=== PATIENT | female | born 1965 | race Caucasian/White ===

== ENCOUNTER 2024-12-20 11:44 | Observation (INO) | payer OTHER ==
[~2024-12-20] VITALS: Ht 157.5 cm; Wt 70.3 kg
[2024-12-20 12:07] VITALS: PULSE 93; RESP 18; TEMP 98.8
[2024-12-20 12:59] LABS: BASOPHILS % 0.4 % (0.0-1.0); EOSINOPHILS % 1.2 % (0.0-6.0); LYMPHOCYTES % 13.7 % (18.0-39.1); MONOCYTES % 6.9 % (4.4-11.3); NEUTROPHILS % 77.4 % (38.7-80.0); RED CELL DISTRIBUTION WIDTH 13.0 % (11.7-14.4)
[2024-12-20 13:03] LABS: LEUKOCYTE ESTERASE ,URINE TRACE (NEGATIVE); PROTEIN,URINE DIPSTICK NEGATIVE (NEGATIVE); URINE UROBILINOGEN 0.2 mg/dL (0.2 - 1)
[2024-12-20] MEDS: SODIUM CHLORIDE 0.9% 1000ML 1,000 ML IV ONE (13:04)
[2024-12-20] MEDS: ONDANSETRON HCL INJ 2MG/ML 2ML 2 MG/ML VIAL IV STA (13:04)
[2024-12-20] MEDS: Morphine 2mg Syringe 2 MG/ML SYR IV ONE (13:05)
[2024-12-20 13:11] LABS: EPITHELIAL CELLS,URINE FEW /LPF
[2024-12-20 13:21] LABS: EST GLOMERULAR FILTRATION RATE 99.0 ML/MIN (>=60)
[2024-12-20] MEDS ORDERED: IOPAMIDOL 370 MG/ML 100 ML INFUS..BTL INJ ONE (13:35)
[2024-12-20] MEDS ORDERED: KETOROLAC TROMETHAMINE 30 MG/ML VIAL IV PRN (16:30)
[2024-12-20] MEDS ORDERED: ONDANSETRON HCL INJ 2MG/ML 2ML 2 MG/ML VIAL IV PRN (16:30)
[2024-12-20] MEDS: SODIUM CHLORIDE 0.9% 1000ML 1,000 ML IV SCH (17:35)
[2024-12-20] MEDS: KETOROLAC TROMETHAMINE 30 MG/ML VIAL IV STA (17:35)
[2024-12-20 18:28] VITALS: BP 115/67; PULSE 94; RESP 17; TEMP 98.4; O2SAT 98
[2024-12-20 20:00] VITALS: BP 108/67; PULSE 85; RESP 18; TEMP 98.4; O2SAT 98
[2024-12-20] MEDS ORDERED: MELATONIN 5 MG TABLET PO PRN (20:15)
[2024-12-20] MEDS ORDERED: ACETAMINOPHEN 325 MG TAB PO PRN (20:15)
[2024-12-20] MEDS ORDERED: SIMETHICONE 80 MG CHEW PO PRN (20:15)
[2024-12-20] MEDS ORDERED: ALBUTEROL/IPRATROPIUM 3 ML NEB NEB PRN (20:15)
[2024-12-20] MEDS ORDERED: POTASSIUM CHLORIDE 20 MEQ TAB CR PO PRN (20:15)
[2024-12-20] MEDS ORDERED: HYDROCODONE/APAP 5MG-325MG TAB PO PRN (20:15)
[2024-12-20] MEDS ORDERED: HYDRALAZINE HCL 20 MG/ML VIAL IV PRN (20:15)
[2024-12-20] MEDS ORDERED: BENZONATATE 100 MG CAP PO PRN (20:15)
[2024-12-20] MEDS ORDERED: DEXTROSE 50% SYRINGE 50 ML IV PRN (20:15)
[2024-12-20] MEDS ORDERED: DIPHENHYDRAMINE HCL 25 MG CAP PO PRN (20:15)
[2024-12-20] MEDS ORDERED: DOCUSATE SODIUM 100 MG CAP PO PRN (20:15)
[2024-12-20] MEDS ORDERED: SYNTHROID88 MCG PO (20:46)
[2024-12-20 21:00] VITALS: BP 108/67; PULSE 85; RESP 18; TEMP 98.4; O2SAT 98
[2024-12-21] VITALS (8 sets, daily range): BP systolic 102–118; BP diastolic 60–71; PULSE 72–85; RESP 16–18; TEMP 97.5–98.8; O2SAT 97–100
[2024-12-21 06:10] LABS: BASOPHILS % 0.6 % (0.0-1.0); EOSINOPHILS % 3.6 % (0.0-6.0); LYMPHOCYTES % 23.6 % (18.0-39.1); MONOCYTES % 5.5 % (4.4-11.3); NEUTROPHILS % 66.4 % (38.7-80.0); RED CELL DISTRIBUTION WIDTH 13.0 % (11.7-14.4)
[2024-12-21 06:43] LABS: EST GLOMERULAR FILTRATION RATE 97.0 ML/MIN (>=60)
[2024-12-21] MEDS: PANTOPRAZOLE SOD 40 MG TABEC PO SCH (09:24)
[2024-12-21] MEDS: ENOXAPARIN SOD INJ 40 MG/0.4 ML SYR SC SCH (16:45)
[2024-12-22] VITALS: BP 121/69; PULSE 74; RESP 18; TEMP 97.6; O2SAT 100
[2024-12-22 04:00] VITALS: BP 120/61; PULSE 61; RESP 18; TEMP 98; O2SAT 99
[2024-12-22 06:16] LABS: BASOPHILS % 0.9 % (0.0-1.0); EOSINOPHILS % 6.6 % (0.0-6.0); LYMPHOCYTES % 35.5 % (18.0-39.1); MONOCYTES % 5.2 % (4.4-11.3); NEUTROPHILS % 51.6 % (38.7-80.0); RED CELL DISTRIBUTION WIDTH 12.8 % (11.7-14.4)
[2024-12-22 06:46] LABS: EST GLOMERULAR FILTRATION RATE 101 ML/MIN (>=60)
[2024-12-22 07:29] LABS: % IRON SATURATION 16 % (15-50)
[2024-12-22 07:53] VITALS: BP 105/63; PULSE 70; RESP 17; TEMP 97.5; O2SAT 100
[2024-12-22 08:00] VITALS: BP 105/63; PULSE 70; RESP 18; TEMP 97.5; O2SAT 100
[2024-12-22 12:00] VITALS: BP 107/76; PULSE 73; RESP 17; TEMP 98; O2SAT 100
[2024-12-23] MEDS ORDERED: LEVOTHYROXINE SODIUM 88 MCG TAB PO SCH (06:00)
== END 2024-12-22 15:30 | disposition home or self-care (01) ==
LOC: ER 12:14 → ERHOLD 16:26 → MED/SURG3 18:04
PROVIDERS: ADMIT Internal Medicine; ATTEND Internal Medicine
DX: K57.32 Diverticulitis of large intestine without perforation or abscess without bleeding (principal); E03.9 Hypothyroidism, unspecified; R30.0 Dysuria; E78.5 Hyperlipidemia, unspecified; I10 Essential (primary) hypertension
CPT/HCPCS: 36415 ×3; 74177; 80048; 80053 ×2; 81001; 82607; 82746; 83540; 83690; 83735; 84466; 85025 ×3; 85045; 87086; 99284; G0378 ×3; J1885; J2270; J2405; J2470 ×2; J2543 ×3; J7030 ×3; Q9967; J1650